=== PATIENT | female | born 1945 | race Caucasian/White ===

== ENCOUNTER 2024-09-20 18:33 | Inpatient (IN) | payer MEDICARE, SELFPAY ==
[2024-09-20] VITALS (8 sets, daily range): BP systolic 139–201; BP diastolic 62–137; BMI 18.0
--- NOTE | 2024-09-20 14:53 | ED.MUSCINJ ---
HPI-Injury
<Roger Galvan PA-C - Last Filed: 09/20/24 14:54>
General
Chief Complaint: Musculo-Skeletal Complaint
Time Seen by Provider: 09/20/24 15:35
<Wesley Hinton PA-C - Last Filed: 09/20/24 19:31>
History of Present Illness-Injury
Initial Injury comments:
79-year-old female with history of hypertension presents to the emergency department for evaluation of right hip pain, she was attempting to sit down on a bench when she missed and fell onto her buttock. She was able to get up and walk with pain.
She does also have right wrist pain however is generally unconcerned for this. Does not take blood thinners
ED Provider Triage
<Roger Galvan PA-C - Last Filed: 09/20/24 14:54>
-
Patient seen by provider in Triage?: Seen in Triage
Attestation: A medical screening examination has been initiated by a qualified medical provider. Based on the assessment performed at this time, it has been determined that an emergent medical condition may exist and the patient has been informed
that further medical evaluation and possible additional diagnostic testing may be needed.
HPI: 79-year-old female presents complaining of right hip and thigh pain after a fall. She went to sit on a bench and missed the bench and landed on her hip. She also complains of right wrist pain. No head strike no thinners. No neck pain.
X-rays of the right wrist, pelvis and right femur pending
GENERAL: Alert , in no apparent distress
EYE: No visual abnormalities.
NECK: Trachea midline
ENT: No visible abnormalities.
LUNGS: No acute respiratory distress
NEUROLOGICAL: Alert and oriented
SKIN: Skin intact. No visible changes.
MUSCULOSKELETAL: Moving extremities normally
PSYCH: Normal and appropriate interaction.
This is a medical evaluation conducted in person to initiate diagnostic evaluation and provide initial therapeutics. Please see further documentation by the treating clinician.
Review of Systems
<Wesley Hinton PA-C - Last Filed: 09/20/24 19:31>
Review of Systems
Allergies reviewed?: Yes
All Other Systems: ROS reviewed and negative except as documented in HPI and ROS
Phy Exam
<Wesley Hinton PA-C - Last Filed: 09/20/24 19:31>
Physical Exam
Physical Exam:
GEN: Well appearing, NAD, WDWN
HEENT: Oral mucosa moist, no scleral icterus
Cardiac: Regular rate
Lung: No respiratory distress, no tachypnea
MSK: No obvious shortening or external rotation of the right hip however the degree of range of motion elicits severe pain, focal tenderness to the greater trochanter and buttock region
Skin: Good color, no pallor or jaundice, no rashes
Neuro: AO x3, moves all extremities freely
Psych: Calm, cooperative
Injury Course
<Roger Galvan PA-C - Last Filed: 09/20/24 14:54>
Orders/Labs/Results
Orders:
Orders
09/20/24 14:51
CR Femur - Right Min 2 Vw Urgent
Comment:
Reason For Exam: fall right thigh pain
CR Pelvis - 1 Or 2 Views Urgent
Comment:
Reason For Exam: fall, right hip pain
CR Wrist - Right Min 3 Views Urgent
Comment:
Reason For Exam: fall
09/20/24 15:48
Morphine Sulfate 4 mg IV NOW STA
09/20/24 15:57
Complete Blood Count/With Diff Urgent
Comprehensive Metabolic Panel Urgent
09/20/24 17:56
EKG [Electrocardiogram (*1)] Routine
Reason for Study: PreOp
EKG [Electrocardiogram (*1)] Routine
Reason for Study: QTc Monitoring
09/20/24 17:58
Admit/Transfer Patient As Directed
Co-Sign Provider:
Level of Care: Inpatient admission
Assign to:: Medical/Surgical
Physician / Group: Katelynn Grijalva - hospitalists
Diagnosis: R proximal femur fracture
Reason for Hospitalization: R proximal femur fracture
Expected length of stay greater than two midnights?: Yes
ELOS- Estimated Length of Stay in days: 2
I certify the patient meets the requirements for IP care: Yes
Code Status As Directed
Resuscitation Status: Full Code
PRN Pain Medication Management As Directed
May give lesser potent ordered pain med per pt: Yes
preference::
Protocol:: Medication orders for pain may be administered in a
manner that supports deferring to patient preference
when the pt is:
- Requesting an ordered lesser potent pain medication.
Least to most potent pain medications are defined
as: acetaminophen < NSAID < tramadol < opioids
(morphine, oxycodone, hydromorphone).
- Requesting a lesser dose of the same medication IF
ORDERED.
- Requesting a less intrusive route of administration
if both routes are prescribed by the provider (PO <
IV).
Abnormal Lab Results
09/20/24
15:57
WBC 15.9 H 10^3/uL
(4.8-10.8)
MCHC 32.5 L g/dL
(33.0-37.0)
Abs Immat Gran (auto) 0.1 H 10^3/uL
(0-0.05)
Absolute Neuts (auto) 13.8 H 10^3/uL
(1.4-6.5)
Absolute Monos (auto) 0.7 H 10^3/uL
(0.1-0.6)
Immature Gran % 0.6 H %
(0-0.5)
Neutrophils % 87.1 H %
(42.2-75.2)
Lymphocytes % 7.5 L %
(20.5-51.1)
Glucose 138 H mg/dl
(70-99)
Alkaline Phosphatase 132 H U/L
(38-126)
09/20/24 15:57
09/20/24 15:57
<Wesley Hinton PA-C - Last Filed: 09/20/24 19:31>
Orders/Labs/Results
Orders:
Orders
09/20/24 14:51
CR Femur - Right Min 2 Vw Urgent
Comment:
Reason For Exam: fall right thigh pain
CR Pelvis - 1 Or 2 Views Urgent
Comment:
Reason For Exam: fall, right hip pain
CR Wrist - Right Min 3 Views Urgent
Comment:
Reason For Exam: fall
09/20/24 15:48
Morphine Sulfate 4 mg IV NOW STA
09/20/24 15:57
Complete Blood Count/With Diff Urgent
Comprehensive Metabolic Panel Urgent
09/20/24 17:56
EKG [Electrocardiogram (*1)] Routine
Reason for Study: PreOp
EKG [Electrocardiogram (*1)] Routine
Reason for Study: QTc Monitoring
09/20/24 17:58
Admit/Transfer Patient As Directed
Co-Sign Provider:
Level of Care: Inpatient admission
Assign to:: Medical/Surgical
Physician / Group: Katelynn razoists
Diagnosis: R proximal femur fracture
Reason for Hospitalization: R proximal femur fracture
Expected length of stay greater than two midnights?: Yes
ELOS- Estimated Length of Stay in days: 2
I certify the patient meets the requirements for IP care: Yes
Code Status As Directed
Resuscitation Status: Full Code
PRN Pain Medication Management As Directed
May give lesser potent ordered pain med per pt: Yes
preference::
Protocol:: Medication orders for pain may be administered in a
manner that supports deferring to patient preference
when the pt is:
- Requesting an ordered lesser potent pain medication.
Least to most potent pain medications are defined
as: acetaminophen < NSAID < tramadol < opioids
(morphine, oxycodone, hydromorphone).
- Requesting a lesser dose of the same medication IF
ORDERED.
- Requesting a less intrusive route of administration
if both routes are prescribed by the provider (PO <
IV).
Abnormal Lab Results
09/20/24
15:57
WBC 15.9 H 10^3/uL
(4.8-10.8)
MCHC 32.5 L g/dL
(33.0-37.0)
Abs Immat Gran (auto) 0.1 H 10^3/uL
(0-0.05)
Absolute Neuts (auto) 13.8 H 10^3/uL
(1.4-6.5)
Absolute Monos (auto) 0.7 H 10^3/uL
(0.1-0.6)
Immature Gran % 0.6 H %
(0-0.5)
Neutrophils % 87.1 H %
(42.2-75.2)
Lymphocytes % 7.5 L %
(20.5-51.1)
Glucose 138 H mg/dl
(70-99)
Alkaline Phosphatase 132 H U/L
(38-126)
09/20/24 15:57
09/20/24 15:57
<Wesley Hinton PA-C - Last Filed: 09/20/24 19:31>
MDM/Problems Addressed
MDM/Problems Addressed:
Imaging identifies a right subcapital femoral neck fracture, patient will be admitted to the hospitalist service, orthopedics made aware for operative intervention
<Wesley Hinton PA-C - Last Filed: 09/20/24 19:31>
*Critical Care Note
Total Time (30-74mins, 75-104mins- exclusive of procedures): Not Applicable
ED Attending Note
<Roger Galvan PA-C - Last Filed: 09/20/24 14:54>
-
Portions of this chart may have been created with voice recognition software.� Occasional wrong word or��sound alike� substitutions may have occurred due to the inherent limitations of voice recognition software.
Discharge Plan
Departure
Patient Disposition: Admit
Date of Disposition: 09/20/24
Time of Disposition: 15:58
Admit to: Med/Surg
Presentation/result/management discussed w/ accepting MD/DO: Hospitalist
Discharge Problem:
Closed fracture of neck of right femur
Interventions
Interventions:
*Risk Screen - Suicide Last Done: 09/20/24 14:52
*General Assessment Last Done: 09/20/24 14:52
*Neglect/Abuse Screening Last Done: 09/20/24 14:52
ED- Fall Risk Assessment Last Done: 09/20/24 15:42
*ED COVID-19 Vaccine History Last Done: 09/20/24 15:49
ED-Musculoskeletal Assessment Last Done: 09/20/24 15:42
[2024-09-20 16:04] LABS: % Basophils 0.3 % (0-2); % Eosinophils 0.3 % (0-6); % Immature Granulocytes 0.6 % (0-0.5); % Lymphocytes 7.5 % (20.5-51.1); % Monocytes 4.2 % (1.7-9.3); % Neutrophils 87.1 % (42.2-75.2); Absolute Basophils 0.1 10^3/uL (0-0.2); Absolute Immature Granulocytes 0.1 10^3/uL (0-0.05); Absolute Lymphocytes 1.2 10^3/uL (1.2-3.4); Absolute Monocytes 0.7 10^3/uL (0.1-0.6); Absolute Neutrophils 13.8 10^3/uL (1.4-6.5); Mean Corp Hgb Conc. 32.5 g/dL (33.0-37.0); Mean Corpuscular Hgb 29.4 pg (27.0-31.0); Mean Corpuscular Volume 90.5 fL (81.0-99.0); Nucleated Red Blood Cells % 0 %; Platelet Count 266 10^3/uL (130-400); Red Blood Cell Count 4.42 10^6/uL (4.20-5.40); White Blood Cell Count 15.9 10^3/uL (4.8-10.8)
[2024-09-20] MEDS: MORPHINE SULFATE 4 MG IV (16:06)
[2024-09-20 16:23] LABS: ALT (SGPT) 18 U/L (0-35); AST (SGOT) 27 U/L (14-36); Albumin 4.4 g/dl (3.5-5.0); Alkaline Phosphatase 132 U/L (38-126); Blood Urea Nitrogen 16 mg/dl (7-17); Calcium 9.3 mg/dl (8.4-10.2); Carbon Dioxide 23 mmol/L (22-30); Glucose 138 mg/dl (70-99); Total Bilirubin 1.3 mg/dl (0.2-1.3); Total Protein 7.5 g/dl (6.3-8.2); eGFR > 60.00
[2024-09-20 16:39] LABS: Chloride 101 mmol/L (98-107); Sodium 135 mmol/L (135-145)
--- NOTE | 2024-09-20 17:47 | HPS.HSE ---
Family Physician
-
Family Physician: DO Nata Rivas
Chief Complaint
-
Fall
History of Present Illness
79 y/o F, hx of HTN, presenting to ER for R hip pain. Patient today was attempting sit down on a bench at a shopping store, when she missed the seat and fell onto her own buttock. She immediately fell R hip pain and R wrist pain but was able to
ambulate but with pain. No prodromal symptoms. Not on blood thinners.
in ER, found to have Mildly impacted subcapital fracture, neck, proximal right femur
Medical History
Past Medical History
Past Medical History: Reports Other (Essential HTN)
Past Surgical History: Reports None
Social History
Tobacco: Non-smoker
Alcohol: None
Drug: None
Living: With Family
Family History
Family History: Not pertinent
Allergies / Home Medications
Allergies reflects when Allergies were last updated in [employer].
Home Medications with original date entered in [employer]
Allergy/Medication List:
Allergies
Allergy/AdvReac Type Severity Reaction Status Date / Time
No Known Allergies Allergy Unverified 09/20/24 14:51
Home Medications
cholecalciferol (vitamin D3) 25 mcg (1,000 unit) tablet (Vitamin D3) 25 mcg PO DAILY 09/20/24
metoprolol succinate 50 mg tablet,extended release 24 hr 50 mg PO DAILY 09/20/24
Review of Systems
-
A 12 point ROS was completed and negative except as noted: Yes
Psych: Reports No Symptoms
Physical Exam
Vital Signs
Vital Signs
Temp Pulse Resp BP Pulse Ox
98.4 F 94 18 174/80 94
09/20/24 14:52 09/20/24 14:52 09/20/24 14:52 09/20/24 17:00 09/20/24 17:30
Physical Exam
General: No Apparent Distress
HEENT: NormoCephalic and Anicteric
Respiratory: Clear; No Wheezes or Rales
Cardiac: S1/S2 and Regular Rhythm
GI: Non Distended
Genito-urinary: Clear Urine
Musculoskeletal: Other (No obvious shortening or external rotation of the right hip however the degree of range of motion elicits severe pain, focal tenderness to the greater trochanter and buttock region)
Neuro: AO x 3
Hematologic/Lymphatic: No Lymphadenopathy
Psych: Calm
Laboratory Results
-
09/20/24 15:57
09/20/24 15:57
Laboratory Results
Total Bilirubin 1.3 mg/dl (0.2-1.3) 09/20/24 15:57
AST 27 U/L (14-36) 09/20/24 15:57
ALT 18 U/L (0-35) 09/20/24 15:57
Alkaline Phosphatase 132 U/L (38-126) H 09/20/24 15:57
Data Reviewed
-
Lab Data: Labs Reviewed by me
Impression/Plan
-
Assessment:
Mechanical fall
R proximal femur fracture
- Xray: Mildly impacted subcapital fracture, neck, proximal right femur.
- Ortho consulted; NPO past midnight for OR planned tomorrow
- pain control
- EKG pre-op pending
Essential HTN
- continue BB
- make prn Hydralazine available
DVT ppx: SCDs
Code: Full
[2024-09-20] MEDS: MORPHINE SULFATE 2 MG IV (20:54)
[2024-09-21] VITALS (8 sets, daily range): BP systolic 107–160; BP diastolic 45–70; PULSE 89; O2SAT 96; BMI 18.0
[2024-09-21] MEDS: ROXICODONE 5 MG PO ×3 (02:31→13:58)
[2024-09-21 06:31] LABS: Hematocrit 37.2 % (37.0-47.0); Hemoglobin 11.9 g/dL (12.0-16.0); Mean Corpuscular Hgb 29.2 pg (27.0-31.0); Mean Corpuscular Volume 91.2 fL (81.0-99.0); Mean Platelet Volume 9.2 fL (7.4-10.4); Platelet Count 232 10^3/uL (130-400); Red Blood Cell Count 4.08 10^6/uL (4.20-5.40); Red Cell Dist. Width 12.9 % (11.5-14.5); White Blood Cell Count 11.5 10^3/uL (4.8-10.8)
[2024-09-21 06:56] LABS: Blood Urea Nitrogen 15 mg/dl (7-17); Calcium 8.9 mg/dl (8.4-10.2); Carbon Dioxide 25 mmol/L (22-30); Chloride 99 mmol/L (98-107); Estimated Creatinine Clearance 64 ml/min; Glucose 117 mg/dl (70-99); Sodium 133 mmol/L (135-145); eGFR > 60.00
--- NOTE | 2024-09-21 07:32 | W.PN.UPDATE ---
Update Note
Progress Note Update
Full orthopedic consult dictated:
Dx: Right hip femoral neck fracture with displacement
Plan: Patient on the OR schedule for later today for right hip hemiarthroplasty. She will remain n.p.o. for now and Ancef on-call to operating room. Antibiotic irrigation on-call to operating room as well. Surgical location marked and surgical
consent signed by patient.
[2024-09-21] MEDS: VITAMIN D3 (cholecalciferol) 25 MCG PO (08:46)
[2024-09-21] MEDS: TOPROL XL 50 MG PO (08:46)
--- NOTE | 2024-09-21 09:03 | W.PN.HOSP.TC ---
Today's Communication/Plan
-
right hip hemiarthroplasty today
Assessment / Plan
Assessment / Plan
Assessment:
Mechanical fall
R proximal femur fracture
- Xray: Mildly impacted subcapital fracture, neck, proximal right femur.
- Ortho consulted; NPO for right hip hemiarthroplasty today
- pain control
- EKG: NSR, LVH. no cardiac symptoms. can proceed with low to intermediate risk for intermediate risk procedure. No addditional testing indicated.
Essential HTN
- continue BB
- make prn Hydralazine available
DVT ppx: SCDs
Code: Full
Anticipated Discharge: 24 - 48 hours
Subjective/Interval History
-
Date of Service: September 21, 2024
denies any new complaints at present
Objective Data
-
Labs:
Laboratory Results
09/21/24
06:01
WBC 11.5 H
Hgb 11.9 L
Hct 37.2
Plt Count 232
Sodium 133 L
Potassium 4.0
Chloride 99
Carbon Dioxide 25
BUN 15
Creatinine 0.6
Glucose 117 H
Calcium 8.9
Vital Signs:
Vital Signs
Temp Pulse Resp BP Pulse Ox
98.6 F 87 20 148/70 93
09/21/24 07:57 09/21/24 07:57 09/21/24 07:57 09/21/24 07:57 09/21/24 07:57
I&O
09/20/24 09/21/24 09/22/24
06:59 06:59 06:59
Intake Total 400 / 400
Output Total 500 / 500
Balance -100 / -100
Physical Exam
-
General: No Apparent Distress
HEENT: Normocephalic and Atraumatic
Respiratory: Negative Wheezes
Cardiac: Regular Rhythm and S1/S2
GI: Soft and Nontender
Genito-urinary: No Costovertebral Tender
Musculoskeletal: No Edema
Neuro: AO x 3
Hematologic / Lymphatic: No Lymphadenopathy
Psych: Calm
Data Reviewed
-
Total Time Spent with Patient (in minutes): 41
Labs: Labs Reviewed by me
--- NOTE | 2024-09-21 13:33 | CM ---
`Reviewed the chart notes and spoke with the patient and granddaughter at the bedside. The patient is from [place]. She was visiting family in the area. The patient resides alone in a one story home with three steps to enter. The patient reports no
DME/VN/SNF in the past. While here the pharmacy of choice is the [facility]. The patient had surgery today for right hip hemiarthroplasty. PT/OT evaluations pending. CM continues to be available to patient/family and is monitoring
medical plan for needs at discharge.
Plan: Discharge plans will most likely be short term rehab prior to transitioning back to home.
[2024-09-21] MEDS: DILAUDID 0.5 MG IV ×2 (13:59→14:17)
--- NOTE | 2024-09-21 14:43 | PTCARENOTE ---
Pt returned to 2S in bed. RLE with decreased movement, neurovascular assessment otherwise WDL. R hip primaseal C/D/I. Pt instructed to ring for assistance getting OOB, verbalized understanding. Bed locked and in the lowest position, safety
maintained. Oriented to room and call olvera, daughter at bedside.
[2024-09-21] MEDS: ASPIRIN 325 MG PO (17:20)
[2024-09-21] MEDS: COLACE 100 MG PO (19:37)
[2024-09-21] MEDS: TYLENOL 650 MG PO ×2 (19:37→23:37)
[2024-09-21] MEDS: ANCEF 5 IV (19:38)
[2024-09-21] MEDS: SENOKOT 17.2 MG PO (19:38)
[2024-09-21] MEDS: BACTROBAN 2% OINTMENT 1 APPLIC NASAL (19:39)
[2024-09-22 03:15] VITALS: BP 117/52
[2024-09-22] MEDS: ANCEF 5 IV (04:35)
[2024-09-22] MEDS: TYLENOL 650 MG PO ×2 (04:35→22:06)
--- NOTE | 2024-09-22 05:31 | W.PN.ORTHO ---
Today's Communication / Plan
-
79F POD 1 R hip hemiarthroplasty with Dr. Mack
-Weightbearing as tolerated with anterior precautions x 6 weeks
-Assist devices as indicated; PT/OT/discharge planning
-Pain control with current regimen
-Early ambulation
-DVT PPx: ASA 325 mg daily x 4 weeks unless recommended otherwise per primary
-Diet per primary
Orthopedic surgery will continue to follow
Assessment
.
Distal Motor Intact: Yes
Dressing:
Clean, dry and intact.
Assessment:
postop imaging shows s/p r hip hemiarthroplasty w/o complication
Plan
.
Surgery / Date: 09/21/24 R hip dariana arthroplasty w/ Dr. Mack
DVT Prophylaxis: Aspirin
Activity:
Out of bed.
PT/OT
Subjective
.
.:
Patient resting comfortably.
Vital Signs and Labs
.
Vital Signs and Labs:
Temp Pulse Resp BP Pulse Ox
97.4 F 70 16 117/52 93
09/22/24 03:15 09/22/24 03:15 09/22/24 03:15 09/22/24 03:15 09/22/24 03:15
[2024-09-22 08:02] LABS: Hematocrit 29.2 % (37.0-47.0); Hemoglobin 9.8 g/dL (12.0-16.0); Mean Corp Hgb Conc. 33.6 g/dL (33.0-37.0); Mean Corpuscular Hgb 29.3 pg (27.0-31.0); Mean Corpuscular Volume 87.4 fL (81.0-99.0); Mean Platelet Volume 9.8 fL (7.4-10.4); Platelet Count 192 10^3/uL (130-400); Red Blood Cell Count 3.34 10^6/uL (4.20-5.40); Red Cell Dist. Width 13.2 % (11.5-14.5); White Blood Cell Count 15.3 10^3/uL (4.8-10.8)
[2024-09-22 08:12] VITALS: BP 139/62
[2024-09-22 08:36] LABS: Blood Urea Nitrogen 29 mg/dl (7-17); Calcium 8.3 mg/dl (8.4-10.2); Carbon Dioxide 22 mmol/L (22-30); Chloride 98 mmol/L (98-107); Estimated Creatinine Clearance 38 ml/min; Glucose 123 mg/dl (70-99); Sodium 131 mmol/L (135-145); eGFR 57.66
[2024-09-22] MEDS: SENOKOT 17.2 MG PO ×2 (08:58→19:51)
[2024-09-22] MEDS: TOPROL XL 50 MG PO (08:58)
[2024-09-22] MEDS: BACTROBAN 2% OINTMENT 1 APPLIC NASAL ×2 (08:58→19:52)
[2024-09-22] MEDS: ASPIRIN 325 MG PO (08:58)
[2024-09-22] MEDS: COLACE 100 MG PO ×2 (08:58→19:52)
[2024-09-22] MEDS: VITAMIN D3 (cholecalciferol) 25 MCG PO (08:59)
[2024-09-22] MEDS: ROXICODONE 5 MG PO ×2 (09:57→18:09)
[2024-09-22 11:07] VITALS: BP 117/65; PULSE 95; O2SAT 96
[2024-09-22 11:28] VITALS: BP 105/53
--- NOTE | 2024-09-22 13:23 | CM ---
Addendum entered by Nicole Aquino RN 09/22/24 15:37:
IMM reviewed.
Original Note:
Reviewed the chart notes and spoke with the patient and her daughter at the bedside. PT/OT recommending SNF. Patient and daughter requested referral be sent to [facility]. [facility] has accepted the patient for tomorrow (Wednesday). CM
continues to be available to patient/family and is monitoring medical plan for needs at discharge.
Plan: Discharge to [facility] tomorrow.
Call report to main number and ask for supervisor vacuum metalizing: [phone]
Fax report to: [phone]
Medical and transport forms on the chart.
--- NOTE | 2024-09-22 14:30 | PN.CDI ---
CDI
- -
CDI:
Physician Documentation Request
Admit Date: 09/20/24 18:33
Dear Doctor Valentine,
Clinical Indicators:
R proximal femur fracture; s/p Right hip hemiarthroplasty 09/21.
Height: 5 ft 7 in
Weight: 115 lbs
BMI: 18.0
Other Clinical Notes:09/21 RD note, ' BMI: 18.0 (underweight)'
If possible, please provide an associated diagnosis related to the abnormal BMI (< or = to 19), such as:
Underweight
BMI is not significant
Other
Use of terms such as suspected, likely, concern for, or probable (associated with a specific diagnosis that is being evaluated, monitored, or treated as if it exists) are acceptable and can be coded in the inpatient setting, when documented at the
time of discharge.
Thank you,
Ale Gonzales RN BSN
CDI Specialist
available via tiger text
Please use your independent medical judgment in providing your response.
[2024-09-22] MEDS: NSS 1000 IV (14:37)
--- NOTE | 2024-09-22 14:43 | W.PN.HOSP.TC ---
Today's Communication/Plan
-
IVF today
repeat AM labs
DC planning to SNF
Assessment / Plan
Assessment / Plan
Assessment:
Mechanical fall
R proximal femur fracture
- Xray: Mildly impacted subcapital fracture, neck, proximal right femur.
- s/p R hip hemiarthroplasty 09/21
- Weightbearing as tolerated with anterior precautions x 6 weeks
- PT/OT - SNF planned
- pain control
- ASA 325 mg daily x 4 weeks
mild TONY with 0.3 rise in Cr
- elevated BUN
- IVF today
Essential HTN
- continue BB
- make prn Hydralazine available
DVT ppx: SCDs
Code: Full
More than 30 minutes spent in discharge including
Final examination of the patient
Summarizing hospital stay
Instructions for continuing care to all relevant caregivers
Preparation of discharge records, prescriptions, and referral forms
Total time spent (in minutes): 41
Anticipated Discharge: Within 24 hours
Subjective/Interval History
-
Date of Service: September 22, 2024
no complaints
Objective Data
-
Labs:
Laboratory Results
09/22/24
06:33
WBC 15.3 H
Hgb 9.8 L
Hct 29.2 L
Plt Count 192
Sodium 131 L
Potassium 4.0
Chloride 98
Carbon Dioxide 22
BUN 29 H
Creatinine 1.0
Glucose 123 H
Calcium 8.3 L
Vital Signs:
Vital Signs
Temp Pulse Resp BP Pulse Ox
97.9 F 92 20 105/53 95
09/22/24 11:28 09/22/24 11:28 09/22/24 11:28 09/22/24 11:28 09/22/24 11:28
I&O
09/21/24 09/22/24 09/23/24
06:59 06:59 06:59
Intake Total 400 / 400 1110 / 1110
Output Total 500 / 500 250 / 250
Balance -100 / -100 860 / 860
Physical Exam
-
General: No Apparent Distress
HEENT: Normocephalic and Atraumatic
Respiratory: Negative Wheezes
Cardiac: Regular Rhythm and S1/S2
GI: Soft
Genito-urinary: No Costovertebral Tender
Musculoskeletal: No Edema
Neuro: AO x 3
Hematologic / Lymphatic: No Lymphadenopathy
Psych: Calm
Data Reviewed
-
Total Time Spent with Patient (in minutes): 41
Labs: Labs Reviewed by me
[2024-09-22 15:34] VITALS: BP 119/51
[2024-09-22 23:46] VITALS: BP 140/59
[2024-09-23] MEDS: TYLENOL 650 MG PO (03:11)
[2024-09-23 07:45] VITALS: BP 123/60
[2024-09-23 07:45] LABS: Hematocrit 26.4 % (37.0-47.0); Hemoglobin 8.7 g/dL (12.0-16.0); Mean Corpuscular Hgb 29.7 pg (27.0-31.0); Mean Corpuscular Volume 90.1 fL (81.0-99.0); Mean Platelet Volume 10.1 fL (7.4-10.4); Platelet Count 159 10^3/uL (130-400); Red Blood Cell Count 2.93 10^6/uL (4.20-5.40); Red Cell Dist. Width 13.2 % (11.5-14.5); White Blood Cell Count 11.2 10^3/uL (4.8-10.8)
[2024-09-23 08:23] LABS: Blood Urea Nitrogen 31 mg/dl (7-17); Calcium 8.1 mg/dl (8.4-10.2); Carbon Dioxide 23 mmol/L (22-30); Chloride 103 mmol/L (98-107); Estimated Creatinine Clearance 42 ml/min; Glucose 100 mg/dl (70-99); Potassium 3.9 mmol/L (3.5-5.1); Sodium 133 mmol/L (135-145); eGFR > 60.00
--- NOTE | 2024-09-23 09:10 | W.PN.HOSP.TC ---
Today's Communication/Plan
-
dc to SNF today
Assessment / Plan
Assessment / Plan
Assessment:
Mechanical fall
R proximal femur fracture
- Xray: Mildly impacted subcapital fracture, neck, proximal right femur.
- s/p R hip hemiarthroplasty 09/21
- Weightbearing as tolerated with anterior precautions x 6 weeks
- PT/OT - SNF planned
- pain control
- ASA 325 mg daily x 4 weeks
mild TONY with 0.3 rise in Cr
- s/p IVF
Essential HTN
- continue BB
- make prn Hydralazine available
Underweight
DVT ppx: SCDs
Code: Full
More than 30 minutes spent in discharge including
Final examination of the patient
Summarizing hospital stay
Instructions for continuing care to all relevant caregivers
Preparation of discharge records, prescriptions, and referral forms
Total time spent (in minutes): 41
Anticipated Discharge: Today
Subjective/Interval History
-
Date of Service: September 23, 2024
no new complaints at present
Objective Data
-
Labs:
Laboratory Results
09/23/24
06:36
WBC 11.2 H
Hgb 8.7 L
Hct 26.4 L
Plt Count 159
Sodium 133 L
Potassium 3.9
Chloride 103
Carbon Dioxide 23
BUN 31 H
Creatinine 0.9
Glucose 100 H
Calcium 8.1 L
Vital Signs:
Vital Signs
Temp Pulse Resp BP Pulse Ox
98.0 F 83 16 123/60 95
09/23/24 07:45 09/23/24 07:45 09/23/24 07:45 09/23/24 07:45 09/23/24 07:45
I&O
09/22/24 09/23/24 09/24/24
06:59 06:59 06:59
Intake Total 1110 / 1110 1550 / 1550 1480 / 1480
Output Total 250 / 250
Balance 860 / 860 1550 / 1550 1480 / 1480
Physical Exam
-
General: No Apparent Distress
HEENT: Normocephalic and Atraumatic
Respiratory: Negative Wheezes
Cardiac: Regular Rhythm and S1/S2
GI: Soft and Nontender
Musculoskeletal: No Edema
Neuro: AO x 3
Hematologic / Lymphatic: No Lymphadenopathy
Psych: Calm
Data Reviewed
-
Total Time Spent with Patient (in minutes): 41
Labs: Labs Reviewed by me
[2024-09-23] MEDS: ASPIRIN 325 MG PO (09:19)
[2024-09-23] MEDS: SENOKOT 17.2 MG PO (09:19)
[2024-09-23] MEDS: COLACE 100 MG PO (09:19)
[2024-09-23] MEDS: TOPROL XL 50 MG PO (09:21)
[2024-09-23] MEDS: ROXICODONE 5 MG PO ×2 (09:23→13:32)
[2024-09-23] MEDS: VITAMIN D3 (cholecalciferol) 25 MCG PO (09:31)
--- NOTE | 2024-09-23 10:21 | W.DS.TRANS ---
DC Summary - Associate Sales Manager
-
Discharge Instructions:
Discharge Diagnosis/Procedures R proximal femur fracture s/p R hip
hemiarthroplasty 09/21
Diet Regular
Activity As tolerated
Additional Activity Weightbearing as tolerated with anterior
precautions x 6 weeks
Bathing Restrictions None
Other Services PT,OT
Instructions:
Stand-Alone Forms:
Changes to Home Medications: No
Discharge Medications:
DC Medications w/original date entered in [employer] [facility]
cholecalciferol (vitamin D3) 25 mcg (1,000 unit) tablet (Vitamin D3) 25 mcg PO DAILY Supplement 09/20/24
metoprolol succinate 50 mg tablet,extended release 24 hr 50 mg PO DAILY Heart Disease/Condition 09/20/24
acetaminophen 325 mg tablet 650 mg (2 x 325 mg) PO Q4HPRN PRN mild pain/BRADY/temp> 100.4F #100 tabs 09/23/24
aspirin 325 mg tablet 325 mg PO DAILY #30 tabs 09/23/24
oxycodone 5 mg tablet 5 mg PO Q4HPRN PRN moderate pain #10 tabs 09/23/24
Home Medication Changes
Pending Results: No
Total time spent discharging patient (in min): 41
--- NOTE | 2024-09-23 10:56 | W.PN.ORTHO ---
Today's Communication / Plan
-
79-year-old female POD #2 Right Hip Hemiarthroplasty 09/21/[address] Mack.
- WBAT RLE with use of walker for ambulatory assistance.
- PT/OT. Anterior Hip Precautions x 6 weeks.
- ASA 325mg daily x 4 weeks unless recommended otherwise per primary.
- Pain control per primary team.
- Plan for D/C today to [facility]. Discharge info updated.
- Aquacel dressing intact 7-10 days post-op. Cisco removed at 2 weeks. If latisha removed at [facility], follow-up outpatient in 4 weeks for radiographic and clinical evaluation.
- Orthopedic surgery will sign off at this time. Please reengage with any further questions or concerns.
Assessment
.
Distal Motor Intact: Yes
Dressing:
Aquacel dressing clean, dry, and intact.
Calf is soft and nontender to palpation.
Able to plantarflex and dorsiflex right ankle.
NVI distally.
Assessment:
POD #2 Right Hip Hemiarthroplasty 09/21/[address] Mack.
Plan
.
Surgery / Date: 09/21/24 R hip dariana arthroplasty w/ Dr. Mack
DVT Prophylaxis: Aspirin
Activity:
Out of bed.
PT/OT.
WBAT RLE.
Anterior Hip Precautions.
Discharge Plan: SNF
Discharge Information:
Appreciate CM.
Subjective
.
.:
Patient resting comfortably in bedside chair. Reports that her symptoms are well-controlled at this time. Denies any acute complaints or concerns. Plan for D/C today to SNF.
Vital Signs and Labs
.
Vital Signs and Labs:
Lab Results
09/23/24 06:36
09/23/24 06:36
Temp Pulse Resp BP Pulse Ox
98.0 F 83 16 123/60 95
09/23/24 07:45 09/23/24 07:45 09/23/24 07:45 09/23/24 07:45 09/23/24 07:45
--- NOTE | 2024-09-23 11:04 | CM ---
Pt for discharge today to [facility]
Transport at 1PM
Spoke with [facility] - can accept
Spoke with pt and daughter - aware of transport time
Plan: Discharge to [facility]
Call report to main number and ask for supervisor scouring pads: [phone]
Fax report to: [phone]
[2024-09-23 12:40] VITALS: BP 132/53
== END 2024-09-23 14:08 | DRG 522 ==
LOC: 2 SOUTH 18:33
PROVIDERS: Orthopaedic Surgery; Physician Assistant; ADMITTING PHYSICIAN Internal Medicine; CONSULT PHYSICIAN Specialist; EMERGENCY PHYSICIAN Emergency Medicine
PROC: 0SRR0J9 Replacement of Right Hip Joint, Femoral Surface with Synthetic Substitute, Cemented, Open Approach (ICD-10-PCS; 2024-09-21)
DX: S72.011A Unspecified intracapsular fracture of right femur, initial encounter for closed fracture (principal); Z68.1 Body mass index [BMI] 19.9 or less, adult; N17.9 Acute kidney failure, unspecified; W19.XXXA Unspecified fall, initial encounter; R63.6 Underweight; I10 Essential (primary) hypertension; M81.0 Age-related osteoporosis without current pathological fracture
CPT/HCPCS: 72170; 73110; 73502; 73552; 80048; 80053; 85025; 85027; 86850; 86900; 86901; 93005; 96374; 97116; 97163; 97167; 97530; 97535; 99284; C1713; C1776

== ENCOUNTER → 2024-09-26 08:30 | Outpatient (REF) | payer OTHER, MEDICARE, SELFPAY ==
[2024-09-26 10:28] LABS: % Basophils 0.8 % (0-2); % Eosinophils 4.2 % (0-6); % Immature Granulocytes 1.3 % (0-0.5); % Lymphocytes 24.2 % (20.5-51.1); % Monocytes 11.5 % (1.7-9.3); Absolute Basophils 0.1 10^3/uL (0-0.2); Absolute Eosinophils 0.4 10^3/uL (0-0.7); Absolute Immature Granulocytes 0.1 10^3/uL (0-0.05); Absolute Lymphocytes 2.4 10^3/uL (1.2-3.4); Absolute Monocytes 1.1 10^3/uL (0.1-0.6); Absolute Neutrophils 5.7 10^3/uL (1.4-6.5); Hematocrit 24.9 % (37.0-47.0); Hemoglobin 8.2 g/dL (12.0-16.0); Mean Corp Hgb Conc. 32.9 g/dL (33.0-37.0); Mean Corpuscular Hgb 29.9 pg (27.0-31.0); Mean Corpuscular Volume 90.9 fL (81.0-99.0); Mean Platelet Volume 9.7 fL (7.4-10.4); Nucleated Red Blood Cells % 0 %; Platelet Count 269 10^3/uL (130-400); Red Blood Cell Count 2.74 10^6/uL (4.20-5.40); Red Cell Dist. Width 12.9 % (11.5-14.5); White Blood Cell Count 9.8 10^3/uL (4.8-10.8)
[2024-09-26 10:47] LABS: Blood Urea Nitrogen 20 mg/dl (7-17); Calcium 8.3 mg/dl (8.4-10.2); Carbon Dioxide 29 mmol/L (22-30); Chloride 101 mmol/L (98-107); Glucose 110 mg/dl (70-99); Potassium 4.2 mmol/L (3.5-5.1); Sodium 134 mmol/L (135-145); eGFR > 60.00
== END ==
LOC: OLABP 08:30
PROVIDERS: ATTENDING PHYSICIAN Family Medicine
DX: I10 Essential (primary) hypertension (principal)
CPT/HCPCS: 36415; 80048; 85025